=== PATIENT | male | born 1965 | race Caucasian/White ===

== ENCOUNTER 2019-03-06 18:51 | Emergency (ER) | payer OTHER, SELFPAY ==
[2019-03-06 19:09] VITALS: BP 149/79; PULSE 62; RESP 16; TEMP 36.4; O2SAT 97; BMI 35.9
--- NOTE | 2019-03-06 19:10 | ED.ABDPAIN ---
HPI - Abdominal Pain General Chief Complaint: Abdominal Pain Stated Complaint: L side abd pain Time Seen by Provider: 03/06/19 18:58 Source: patient and family Mode of arrival: Ambulatory Limitations: no limitations History of Present Illness HPI narrative: 53-year-old male nonsmoker with noncontributory medical history presents with a chief complaint of severe left groin pain that radiates to his left flank and left testicle since yesterday. He denies consistent provocation or palliation but does state that the pain in his testicle seems to be worse with palpation. He denies any dysuria, frequency or urgency. He denies any fever or chills. He denies any hematuria. He has no history of the same. Denies any injuries or recent travel. He states there is always a lingering ache but (with no pattern) there is a very severe pain that comes and goes with the mind of its own. MD complaint: flank pain Onset (ago): day(s) Pain Consistency: intermittent Location: LLQ and L flank Severity: mild Quality: stabbing Radiation: L flank Migration to: LLQ Relieving factors: nothing Exacerbating factors: nothing Associated symptoms: nausea Related Data Previous Rx's Medication Instructions Recorded clobetasol 0.05 % topical ointment 1 applictn TOP BID #30 gram 01/03/19 hydrocodone-acetaminophen 1 tab PO Q4-6H PRN #10 tab 03/06/19 ketorolac 10 mg PO Q6H PRN #14 tab 03/06/19 ondansetron 4 mg PO TID-QID PRN #10 tab 03/06/19 tamsulosin [Flomax] 0.4 mg PO DAILY #10 cap 03/06/19 Allergies Allergy/AdvReac Type Severity Reaction Status Date / Time No Known Drug Allergies Allergy Verified 03/06/19 19:09 Review of Systems Constitutional Constitutional: Denies chills, Denies fatigue, Denies fever(s), Denies frequent falls, Denies lethargy and Denies weakness Eyes Eyes: Denies change in vision, Denies eye discharge, Denies irritation and Denies loss of vision ENT Ears, Nose, Mouth, and Throat: Denies change in voice, Denies dizziness, Denies neck pain, Denies sore throat and Denies throat swelling Cardiovascular Cardiovascular: Denies chest pain, Denies irregular heart rhythm, Denies lightheadedness, Denies palpitations, Denies dyspnea, Denies dyspnea on exertion and Denies orthopnea Respiratory Respiratory: Denies cough, Denies dyspnea, Denies dyspnea on exertion and Denies wheezing Gastrointestinal Gastrointestinal: Denies abdominal pain, Denies change in bowel habits, Denies diarrhea, Denies nausea and Denies vomiting Genitourinary Genitourinary: Denies hematuria, Reports flank pain, Denies urinary incontinence and Denies urinary urgency Musculoskeletal Musculoskeletal: Denies back pain, Denies muscle weakness, Denies neck pain, Denies numbness and Denies tingling Integumentary/Breasts Skin/Breast: Denies pruritus, Denies erythema, Denies rash and Denies wounds Neurologic Neurologic: Denies behavioral changes, Denies confusion, Denies dizziness, Denies frequent falls, Denies loss of vision, Denies numbness, Denies tingling and Denies weakness Psychiatric Psychiatric: Denies anxiety, Denies behavioral changes, Denies confusion, Denies depression, Denies homicidal ideation and Denies suicidal ideation Endocrine Endocrine: Denies fatigue, Denies flushing and Denies palpitations Hematologic/Lymphatic Hematologic/Lymphatic: Denies easy bruising Allergic/Immunologic Allergic/Immunologic: Denies urticaria, Denies throat swelling and Denies wheezing Patient History Family History Father Cancer Mother CAD in [place] artery Grandfather Heart disease Grandmother Congestive heart failure Social History marital status: household members: other pets and animals: No education level: college occupational status: employed current occupational exposures/hazards: No ([employer]) mercedes/spiritism: [employer] leisure activities: music and other other: Walking seatbelt use: always water heater temp set < 120 deg: Yes working smoke detector in home: Yes fire extinguisher in home: Yes carbon monox detector in home: Yes firearms in home: Yes (Not locked) firearms unloaded and locked: Yes do you feel safe at home: Yes Smoking Status: Never smoker alcohol intake: never substance use type: does not use during the past year weight has: other well-balanced diet: daily or most days daily servings fruits/ve-4 caffeine: Yes (Rare) eating out: 1-3 times/week Type(s) of exercise: other frequency: other duration: 15-30 minutes/day additional social history: On my feet most of the day with small walk. Not much real exertion. Vision Deficiencies: Wear glasses Exam Narrative Exam Narrative: GENERAL: [53] year old patient appears stated age. Well-nourished, well-developed patient, in mild distress. HEAD: Atraumatic. Normocephalic. EYES: Pupils equal round and reactive. Extraocular motions intact. No scleral icterus. No injection or drainage. ENT: Nose without bleeding, purulent drainage. Throat without erythema, tonsillar hypertrophy or exudate. Airway patent. NECK: Trachea midline. Non tender CARDIOVASCULAR: Regular rate and rhythm without murmurs, gallops, or rubs. RESPIRATORY: Clear to auscultation. Breath sounds equal bilaterally. No wheezes, rales, or rhonchi. GASTROINTESTINAL: Abdomen soft, non-tender, nondistended. : patient examined while standing. Pain to L testicle with elevation, no redness, or swelling. EXTREMITIES: No edema or joint tenderness. BACK: Nontender without deformity or crepitance. No flank tenderness. NEURO: AOx3. SKIN: No rash or erythema of visible areas Initial Vital Signs Initial Vital Signs: Vital Signs Temperature 97.6 F 03/06/19 19:09 Pulse Rate 62 03/06/19 19:09 Respiratory Rate 16 03/06/19 19:09 Blood Pressure 149/79 H 03/06/19 19:09 Pulse Oximetry 97 03/06/19 19:09 Course Orders Ordered: ED Orders 03/06/19 19:15 Basic Metabolic Panel Stat Complete Blood Count AUTO DIFF Stat 03/06/19 19:21 US scrotum Stat 03/06/19 20:01 CT kidney ureter bladder (KUB) Stat Discontinued Medications Hydrocodone Bitart/Acetaminophen (Vicodin 5/325 Prepack) 1 bottle MISC SEEINSTR ONE Stop: 03/06/19 21:03 Last Admin: 03/06/19 21:07 Dose: 1 bottle Documented by: JOSEFINA Sodium Chloride (Normal Saline 0.9%) 500 mls @ 1,000 mls/hr IV BOLUS ONE Stop: 03/06/19 19:50 Last Infusion: 03/06/19 20:13 Dose: 0 mls/hr Documented by: Admin: 03/06/19 19:36 Dose: 1,000 mls/hr Documented by: JOSEFINA Ketorolac Tromethamine (Toradol) 15 mg IV NOW ONE Stop: 03/06/19 19:22 Last Admin: 03/06/19 19:35 Dose: 15 mg Documented by: JOSEFINA Ondansetron HCl (Zofran) 4 mg IV Q4HR PRN PRN Reason: Nausea And Vomiting Ondansetron HCl (Zofran Odt Prepack) 1 bottle MISC SEEINSTR ONE Stop: 03/06/19 21:03 Last Admin: 03/06/19 21:07 Dose: 1 bottle Documented by: JOSEFINA Vital Signs Vital signs: Vital Signs - 8 hr 03/06/19 19:09 03/06/19 20:49 Temperature 97.6 F Pulse Rate 62 60 Respiratory Rate 16 16 Blood Pressure 149/79 H Blood Pressure [Left Arm] 115/73 Pulse Oximetry 97 98 MDM - Abdominal Pain Lab Data Result diagrams: 03/06/19 19:15 03/06/19 19:15 Labs: Lab Results 03/06/19 03/06/19 Range/Units 19:15 19:15 WBC 9.8 (4.5-11.0) X10^3/uL RBC 5.08 (4.5-5.9) X10^6/uL Hgb 15.1 (13.5-17.5) g/dL Hct 44.1 (41-53) % MCV 86.8 (80-100) fL MCH 29.7 (26-34) PG MCHC 34.2 (30-36) % RDW 13.6 (11.6-14.8) % Plt Count 263 (150-400) X10^3/uL Neut % (Auto) 61.9 (50-75) % Lymph % (Auto) 28.3 (25-40) % [place] % (Auto) 5.9 (3-14) % Eos % (Auto) 3.2 (2-4) % Baso % (Auto) 0.7 (0-2) % Neut # (Auto) 6100 (4724-6938) /uL Lymph # (Auto) 2800 (6322-7127) /uL [place] # (Auto) 600 (0-900) /uL Eos # (Auto) 300 (0-450) /uL Baso # (Auto) 100 (0-100) /uL Sodium 143 (137-145) mmol/L Potassium 3.8 (3.4-5.1) mmol/L Chloride 105 (98-107) mmol/L Carbon Dioxide 29 (22-32) mmol/L BUN 17 (9-20) mg/dL Creatinine 1.10 (0.66-1.25) mg/dL Estimated GFR > 60.0 (>60) mL/min BUN/Creatinine Ratio 15.5 (6-22) Glucose 101 H (70-100) mg/dL Calcium 10.2 (8.4-10.2) mg/dL Imaging Data CT scan - abdomen: Radiologist's impression: Chart [facility] [employer] DATE TYPE STATUS AUTHOR Hx 03/06/19 20:01 Chin Elmore 03/06/19 19:21 Chin Elmore HerlindaHussain 53, M1965 [facility] ER, [facility] ED 177.8cm 113.398kg BMI: 35.9kg/m? Abdominal Pain Search Chart No Data to Display ONSET Today 20:49 Hussain Pate 53 M 1965 [place] [address] CT Scan Report Signed Patient: Hermelinda Pate#: [id number] : 1965Acct:[id number] Age/Sex: 53 / MDate of Service: 03/06/19 Loc: ED Accession Number: [id number] Procedure: CT kidney ureter bladder (KUB) Ordering Provider: Madi Bass D.O. PROCEDURE: CT KIDNEY URETER BLADDER (KUB) INDICATIONS: severe LLQ pain w/radiation to flank TECHNIQUE: Noncontrast 5 mm thick sections acquired from the diaphragms to the symphysis. 5 mm thick coronal and sagittal reformats were then performed. For radiation dose reduction, the following was used: automated exposure control, adjustment of mA and/or kV according to patient size. COMPARISON: None. FINDINGS: Image quality: Excellent. Lung bases: Lung bases are clear. Heart size is normal. Urinary system: There is a small obstructing 2 mm stone at the left ureterovesical junction. There is mild left hydroureteronephrosis with mild perinephric and periureteral fat stranding. No right renal stones or hydronephrosis. Bladder wall thickness is normal; no calcified bladder stones. Other solid organs: Noncontrast evaluation the liver demonstrates no focal hepatic lesions. Gallbladder appears within normal limits without calcified gallstones. Pancreas is normal in contours. Spleen is normal in size. No adrenal nodules. Peritoneum and bowel: Unenhanced bowel loops demonstrate normal wall thickness and caliber. The appendix is normal in appearance. There is colonic diverticulosis without acute diverticulitis. No free fluid or air. Nodes and vessels: No retroperitoneal or mesenteric adenopathy by size criteria. There is mild hazy fat stranding of the mesentery. Aorta and inferior vena cava are normal in caliber. Abdominal wall: No ventral hernias. Pelvis: No free pelvic fluid. No inguinal hernias or adenopathy. Bones: No suspicious bony lesions. No vertebral body compression fractures. IMPRESSION: 1. Small obstructing 2 mm stone at the left UVJ with associated mild left hydroureteronephrosis. Dictated by: Chin Elmore M.D. on 03/06/2019 at 20:37 Approved by: Chin Elmore M.D. on 03/06/2019 at 20:40 Scrotal US: Radiologist's impression: Chart Viewer Diagnostics DATE TYPE STATUS AUTHOR Hx 03/06/19 20:01 Chin Elmore 03/06/19 19:21 Chin Elmore Lance 53, M1965 [facility] ER, [facility] ED 177.8cm 113.398kg BMI: 35.9kg/m? Abdominal Pain Search Chart No Data to Display ONSET Today 20:49 Hussain Pate 53 M [address] [address] Ultrasound Report Signed Patient: HerlindaHermelinda#: [id number] : 1965Acct:[id number] Age/Sex: 53 / MDate of Service: 03/06/19 Loc: ED Accession Number: [id number] Procedure: US scrotum Ordering Provider: Madi Bass D.O. PROCEDURE: US SCROTUM INDICATIONS: SEVERE LEFT TESTICULAR PAIN TECHNIQUE: Real-time scanning was performed of the scrotum and testicles, with image documentation. Color and pulse Doppler interrogation was performed of both testicles. COMPARISON: None. FINDINGS: Right: Testicle measures 4.1 x 2.2 x 2.6 cm. There are rete testes demonstrated. No discrete testicular mass. Epididymis is normal in overall size and morphology. There is a varicocele. There is a small hydrocele. Overlying scrotal skin is normal in thickness. Left: Testicle measures up to 3.6 x 1.7 x 2.7 without a discrete testicular mass. There are rete testes are demonstrated with a few associated small cystic foci measuring up to 0.3 cm. These demonstrate internal vascularity on color Doppler interrogation. Epididymis is not well-visualized due to prominent varicocele vessels measuring up to 0.5 cm. There is a small hydrocele. Overlying scrotal skin is normal in thickness. Doppler: Color and pulse Doppler demonstrate normal and symmetric arterial flow in both testicles. IMPRESSION: 1. No evidence of testicular torsion. 2. Bilateral rete testes with a few associated small cystic foci in the left testicle. Findings are nonspecific and may represent tubular ectasia or small spermatoceles. No discrete solid testicular mass identified. 3. Bilateral varicoceles, left greater than right, as well as small hydroceles. Dictated by: Chin Elmore M.D. on 03/06/2019 at 21:28 Discharge Plan Departure Patient Disposition: Home Clinical Impression: Kidney stone on left side Discharge Date/Time: 03/06/19 21:28 Instructions: DI for Kidney Stones Activity Restrictions/Additional Instructions: *You have been diagnosed with [left-sided kidney stone, left side scrotal varicocele] *What to do: *Take medications as directed *Follow up with your primary care provider in 2-3 days, call for an appointment. Let them know you were seen in the Emergency Department and that we ask that you be seen in follow up *Return to ER if you should have any new, worsening or concerning symptoms such as fever > 101F, shaking chills, worsening pain Prescriptions: New hydrocodone-acetaminophen 5-325 mg tablet 1 tab PO Q4-6H PRN (Reason: pain) Qty: 10 RF: 0 ketorolac 10 mg tablet 10 mg PO Q6H PRN (Reason: pain) Qty: 14 RF: 0 tamsulosin [Flomax] 0.4 mg capsule 0.4 mg PO DAILY Qty: 10 RF: 0 ondansetron 4 mg tablet,disintegrating 4 mg PO TID-QID PRN (Reason: nausea and vomiting) Qty: 10 RF: 0 No Action clobetasol 0.05 % ointment 1 applictn TOP BID Qty: 30 RF: 0 Referrals: Lenore Sosa MD [Non-Staff] -
--- NOTE | 2019-03-06 19:21 | DI.US.S_ITS ---
PROCEDURE: US SCROTUM INDICATIONS: SEVERE LEFT TESTICULAR PAIN TECHNIQUE: Real-time scanning was performed of the scrotum and testicles, with image documentation. Color and pulse Doppler interrogation was performed of both testicles. COMPARISON: None. FINDINGS: Right: Testicle measures 4.1 x 2.2 x 2.6 cm. There are rete testes demonstrated. No discrete testicular mass. Epididymis is normal in overall size and morphology. There is a varicocele. There is a small hydrocele. Overlying scrotal skin is normal in thickness. Left: Testicle measures up to 3.6 x 1.7 x 2.7 without a discrete testicular mass. There are rete testes are demonstrated with a few associated small cystic foci measuring up to 0.3 cm. These demonstrate internal vascularity on color Doppler interrogation. Epididymis is not well-visualized due to prominent varicocele vessels measuring up to 0.5 cm. There is a small hydrocele. Overlying scrotal skin is normal in thickness. Doppler: Color and pulse Doppler demonstrate normal and symmetric arterial flow in both testicles. IMPRESSION: 1. No evidence of testicular torsion. 2. Bilateral rete testes with a few associated small cystic foci in the left testicle. Findings are nonspecific and may represent tubular ectasia or small spermatoceles. No discrete solid testicular mass identified. 3. Bilateral varicoceles, left greater than right, as well as small hydroceles. Dictated by: Chin Elmore M.D. on 03/06/2019 at 21:28 Approved by: Chin Elmore M.D. on 03/06/2019 at 21:37
[2019-03-06] MEDS: KETOROLAC 60 MG/2 ML VIAL 15 MG IV (19:35)
[2019-03-06] MEDS: SODIUM CHLORIDE 0.9% 500 ML 1000 ML IV (19:36)
[2019-03-06 19:46] LABS: Add Manual Diff / Slide Review NO; Basophils Absolute Auto 100 /uL (0-100); Basophils Percent Auto 0.7 % (0-2); Eosinophils Absolute Auto 300 /uL (0-450); Eosinophils Percent Auto 3.2 % (2-4); Hematocrit 44.1 % (41-53); Hemoglobin 15.1 g/dL (13.5-17.5); Lymphocytes Absolute Auto 2800 /uL (1100-4500); Lymphocytes Percent Auto 28.3 % (25-40); Mean Corpuscular HGB Conc 34.2 % (30-36); Mean Corpuscular Hemoglobin 29.7 PG (26-34); Mean Corpuscular Volume 86.8 fL (80-100); Monocytes Absolute Auto 600 /uL (0-900); Monocytes Percent Auto 5.9 % (3-14); Neutrophils Absolute Auto 6100 /uL (1500-7000); Neutrophils Percent Auto 61.9 % (50-75); Platelet Count 263 X10^3/uL (150-400); Red Blood Cell Count 5.08 X10^6/uL (4.5-5.9); Red Cell Distribution Width 13.6 % (11.6-14.8); White Blood Cell Count 9.8 X10^3/uL (4.5-11.0)
[2019-03-06 19:49] LABS: BUN Creatinine Ratio 15.5 (6-22); Blood Urea Nitrogen 17 mg/dL (9-20); Calcium 10.2 mg/dL (8.4-10.2); Carbon Dioxide 29 mmol/L (22-32); Chloride 105 mmol/L (98-107); Estimated Glomerular Filt Rate > 60.0 mL/min (>60); Glucose 101 mg/dL (70-100); HEMOLYSIS < 15 (0-50); Potassium 3.8 mmol/L (3.4-5.1); Sodium 143 mmol/L (137-145)
--- NOTE | 2019-03-06 20:01 | DI.CT.S_ITS ---
PROCEDURE: CT KIDNEY URETER BLADDER (KUB) INDICATIONS: severe LLQ pain w/radiation to flank TECHNIQUE: Noncontrast 5 mm thick sections acquired from the diaphragms to the symphysis. 5 mm thick coronal and sagittal reformats were then performed. For radiation dose reduction, the following was used: automated exposure control, adjustment of mA and/or kV according to patient size. COMPARISON: None. FINDINGS: Image quality: Excellent. Lung bases: Lung bases are clear. Heart size is normal. Urinary system: There is a small obstructing 2 mm stone at the left ureterovesical junction. There is mild left hydroureteronephrosis with mild perinephric and periureteral fat stranding. No right renal stones or hydronephrosis. Bladder wall thickness is normal; no calcified bladder stones. Other solid organs: Noncontrast evaluation the liver demonstrates no focal hepatic lesions. Gallbladder appears within normal limits without calcified gallstones. Pancreas is normal in contours. Spleen is normal in size. No adrenal nodules. Peritoneum and bowel: Unenhanced bowel loops demonstrate normal wall thickness and caliber. The appendix is normal in appearance. There is colonic diverticulosis without acute diverticulitis. No free fluid or air. Nodes and vessels: No retroperitoneal or mesenteric adenopathy by size criteria. There is mild hazy fat stranding of the mesentery. Aorta and inferior vena cava are normal in caliber. Abdominal wall: No ventral hernias. Pelvis: No free pelvic fluid. No inguinal hernias or adenopathy. Bones: No suspicious bony lesions. No vertebral body compression fractures. IMPRESSION: 1. Small obstructing 2 mm stone at the left UVJ with associated mild left hydroureteronephrosis. Dictated by: Chin Elmore M.D. on 03/06/2019 at 20:37 Approved by: Chin Elmore M.D. on 03/06/2019 at 20:40
[2019-03-06 20:49] VITALS: BP 115/73; PULSE 60; RESP 16; O2SAT 98
[2019-03-06] MEDS: HYDROCODONE/ACET 5/325 PREPACK 1 BOTTLE MISC (21:07)
[2019-03-06] MEDS: ONDANSETRON 4 MG ODT PREPACK 1 BOTTLE MISC (21:07)
== END 2019-03-06 21:28 | disposition home or self-care (01) ==
PROVIDERS: Emergency Provider Emergency Medicine
DX: N20.0 Calculus of kidney (principal)
CPT/HCPCS: 36415; 74176; 76870; 80048; 85025; 96361; 96374; 99283; 99284; J1885

== ENCOUNTER → 2020-09-16 15:20 | Outpatient (CLI) | payer OTHER, SELFPAY ==
[2020-09-16 16:19] LABS: Add Manual Diff / Slide Review NO; Basophils Absolute Auto 100 /uL (0-100); Basophils Percent Auto 0.9 % (0-2); Eosinophils Absolute Auto 200 /uL (0-450); Eosinophils Percent Auto 2.4 % (2-4); Hematocrit 44.8 % (41-53); Hemoglobin 15.2 g/dL (13.5-17.5); Lymphocytes Absolute Auto 1600 /uL (1100-4500); Mean Corpuscular HGB Conc 33.9 % (30-36); Mean Corpuscular Hemoglobin 29.7 PG (26-34); Mean Corpuscular Volume 87.5 fL (80-100); Monocytes Absolute Auto 400 /uL (0-900); Monocytes Percent Auto 5.9 % (3-14); Neutrophils Absolute Auto 5300 /uL (1500-7000); Neutrophils Percent Auto 69.8 % (50-75); Platelet Count 250 X10^3/uL (150-400); Red Blood Cell Count 5.12 X10^6/uL (4.5-5.9); Red Cell Distribution Width 13.7 % (11.6-14.8); White Blood Cell Count 7.6 X10^3/uL (4.5-11.0)
[2020-09-16 16:58] LABS: Alanine Aminotransferase 37 IU/L (<50); Albumin 4.6 g/dL (3.5-5.0); Albumin Globulin Ratio 1.4 (1.0-2.8); Alkaline Phosphatase 60 U/L (38-126); Aspartate Aminotransferase 32 IU/L (17-59); BUN Creatinine Ratio 15.7 (6-22); Bilirubin Total 0.5 mg/dL (0.2-1.3); Bilirubin Unconjugated 0.3 mg/dL (0.0-1.1); Blood Urea Nitrogen 18 mg/dL (9-20); Calcium 10.3 mg/dL (8.4-10.2); Carbon Dioxide 23 mmol/L (22-32); Chloride 104 mmol/L (98-107); Cholesterol 230 mg/dL (140-199); Estimated Glomerular Filt Rate > 60.0 mL/min (>60); Globulin 3.2 g/dL (1.7-4.1); Glucose 95 mg/dL (70-100); HDL Cholesterol 43 mg/dL (40-60); HEMOLYSIS < 15 (0-50); LDL Cholesterol Calculated 132 mg/dL (<100); Potassium 4.4 mmol/L (3.4-5.1); Sodium 137 mmol/L (137-145); Total Protein 7.8 g/dL (6.3-8.2); Triglycerides 277 mg/dL (35-150)
[2020-09-16 21:03] LABS: Hepatitis B Surface Antigen NEGATIVE s/c (NEGATIVE)
[2020-09-16 21:21] LABS: Hep C Virus Ab w/Reflex Quant NEGATIVE s/c (NEGATIVE)
[2020-09-17 06:10] LABS: Hepatitis B Surf AB Quant 59.6 mIU/mL (Immunity>9.9)
[2020-09-18 01:36] LABS: Hepatitis B Core Antibody Negative (Negative)
[2020-09-21 15:19] LABS: QuantiFERON Mitogen Value >10.00 IU/mL (.); QuantiFERON Nil Value <0.00 IU/mL (.); QuantiFERON TB Gold Plus Negative (Negative); QuantiFERON TB1 Ag Value <0.00 IU/mL (.); QuantiFERON TB2 Ag Value <0.00 IU/mL (.)
== END ==
PROVIDERS: Referring Provider Physician Assistant; Visit Provider Physician Assistant
DX: L40.0 Psoriasis vulgaris (principal); D48.5 Neoplasm of uncertain behavior of skin
CPT/HCPCS: 36415; 80048; 80061; 80076; 85025; 86480; 86704; 86706; 86803; 87340

== ENCOUNTER → 2020-11-08 09:00 | Outpatient (CLI) | payer OTHER, SELFPAY ==
[2020-11-08 11:21] LABS: Alanine Aminotransferase 30 IU/L (<50); Albumin 4.2 g/dL (3.5-5.0); Albumin Globulin Ratio 1.4 (1.0-2.8); Alkaline Phosphatase 53 U/L (38-126); Aspartate Aminotransferase 31 IU/L (17-59); BUN Creatinine Ratio 13.6 (6-22); Bilirubin Total 0.5 mg/dL (0.2-1.3); Blood Urea Nitrogen 15 mg/dL (9-20); Calcium 9.7 mg/dL (8.4-10.2); Carbon Dioxide 24 mmol/L (22-32); Chloride 109 mmol/L (98-107); Estimated Glomerular Filt Rate > 60.0 mL/min (>60); Globulin 2.9 g/dL (1.7-4.1); Glucose 92 mg/dL (70-100); HEMOLYSIS < 15 (0-50); Potassium 4.2 mmol/L (3.4-5.1); Sodium 141 mmol/L (137-145); Total Protein 7.1 g/dL (6.3-8.2)
== END ==
PROVIDERS: Referring Provider Physician Assistant; Visit Provider Physician Assistant
DX: L40.0 Psoriasis vulgaris (principal); L40.8 Other psoriasis
CPT/HCPCS: 36415; 80053